=== PATIENT | male | born 1980 | race Caucasian/White ===

== ENCOUNTER 2019-11-06 07:57 | Emergency (ER) | payer OTHER ==
[2019-11-06] MEDS ORDERED: Ketorolac 15 MG/ML SDV IM ONE (08:18)
[2019-11-06] MEDS ORDERED: Cyclobenzaprine 10 MG Tab PO ONE (08:24)
[2019-11-06] MEDS ORDERED: Ibuprofen 600 MG Tab PO ONE (08:24)
--- NOTE | 2019-11-06 08:29 | EDM.PDOC ---
ED HPI GENERAL MEDICAL PROBLEM - General Chief Complaint: Back Pain or Injury Stated Complaint: CHEST DISCOMFORT, BACK INJURY? NUMBNESS Time Seen by Provider: 11/06/19 08:11 - History of Present Illness INITIAL COMMENTS - FREE TEXT/NARRATIVE: History of present illness: 39-year-old male presenting with upper back pain radiating around to the chest after lifting a heavy box. Had no symptoms prior to lifting the box. He reports the box was about chest tight and he pulled it out and felt suddenly pain between his shoulder blades that wrapped around to the chest. No difficulty breathing. No loss of bowel or bladder control. Has been able to ambulate since the pain started. Review of systems: As per history of present illness and below otherwise all systems reviewed and negative. Past medical history: As per history of present illness and as reviewed below otherwise noncontributory. Surgical history: As per history of present illness and as reviewed below otherwise noncontributory. Social history: No reported history of drug or alcohol abuse. Family history: As per history of present illness and as reviewed below otherwise noncontributory. Physical exam: GEN: no acute distress, well appearing HEENT: Atraumatic, normocephalic, mucous membranes moist, Neck: supple, nontender, trachea midline. Lungs: No respiratory distress. Heart: RRR no murmurs Abdomen: Soft, nondistended, nontender. Back: Tender to palpation between shoulder blades Extremities: Atraumatic. Neurovascularly intact. Neuro: Awake, alert, oriented. Neuro Exam nonfocal. No numbness or weakness on exam. Skin: warm, dry, no lesions Diagnostics: EKG performed today at 8:16 AM, shows sinus rhythm rate 62, no STEMI. Therapeutics: Initially Toradol IM was ordered, however the patient reported he did not like needles and declined the Toradol, and therefore ibuprofen and Flexeril ordered instead. MDM: Impression: [] Plan: [] Definitive disposition and diagnosis as appropriate pending reevaluation and review of above. Upper back Pain Score (Numeric/FACES): 3 - Related Data Allergies Allergy/AdvReac Type Severity Reaction Status Date / Time Penicillins Allergy Other Verified 11/06/19 08:09 Home Meds: Home Meds Cyclobenzaprine [Flexeril] 10 mg PO TID PRN #15 tab 11/06/19 [Rx] Lidocaine [Lidocaine Pain Relief] 1 each TP Q12HR #6 adh..patch 11/06/19 [Rx] Past Medical History HEENT History: Reports: None Cardiovascular History: Reports: None Respiratory History: Reports: None Gastrointestinal History: Reports: None Genitourinary History: Reports: None Musculoskeletal History: Reports: None Neurological History: Reports: None Psychiatric History: Reports: None Endocrine/Metabolic History: Reports: None Hematologic History: Reports: None Immunologic History: Reports: None Oncologic (Cancer) History: Reports: None Dermatologic History: Reports: None - Infectious Disease History Infectious Disease History: Reports: Chicken Pox - Past Surgical History Head Surgeries/Procedures: Reports: None HEENT Surgical History: Reports: None Cardiovascular Surgical History: Reports: None Respiratory Surgical History: Reports: None GI Surgical History: Reports: None Male Surgical History: Reports: None Endocrine Surgical History: Reports: None Neurological Surgical History: Reports: None Musculoskeletal Surgical History: Reports: None Oncologic Surgical History: Reports: None Dermatological Surgical History: Reports: None Social & Family History - Family History Family Medical History: Noncontributory - Tobacco Use Smoking Status *Q: Current Every Day Smoker Years of Tobacco use: 19 Packs/Tins Daily: 0.5 - Caffeine Use Caffeine Use: Reports: Soda - Alcohol Use Days Per Week of Alcohol Use: 7 Number of Drinks Per Day: 6 Total Drinks Per Week: 42 - Recreational Drug Use Recreational Drug Use: No ED ROS GENERAL - Review of Systems Review Of Systems: See Below (See dictation) ED EXAM, UPPER BACK/NECK PAIN - Physical Exam Exam: See Below (See dictation) Course - Vital Signs Last Recorded V/S: Last Vital Signs Temp 96.6 F L 11/06/19 08:06 Pulse 74 11/06/19 11:42 Resp 16 11/06/19 11:42 BP 133/70 11/06/19 11:42 Pulse Ox 97 11/06/19 11:42 - Orders/Labs/Meds Orders: Active Orders 24 hr Category Date Time Status EKG Documentation Completion [RC] STAT Care 11/06/19 08:18 Active Sodium Chloride 0.9% [Saline Flush] Med 11/06/19 09:41 Active 10 ml FLUSH ASDIRECTED PRN Sodium Chloride 0.9% [Saline Flush] Med 11/06/19 09:41 Active 2.5 ml FLUSH ASDIRECTED PRN Saline Lock Insert [OM.PC] Stat Oth 11/06/19 09:41 Ordered Medication Orders Sodium Chloride (Saline Flush) 10 ml FLUSH ASDIRECTED PRN PRN Reason: Keep Vein Open Last Admin: 11/06/19 11:40 Dose: 10 ml Sodium Chloride (Saline Flush) 2.5 ml FLUSH ASDIRECTED PRN PRN Reason: Keep Vein Open Last Admin: 11/06/19 11:40 Dose: 2.5 ml Labs: Laboratory Tests 11/06/19 11/06/19 Range/Units 09:50 09:50 WBC 9.74 (4.0-11.0) K/uL RBC 5.06 (4.50-5.90) M/uL Hgb 16.0 (13.0-17.0) g/dL Hct 48.9 (38.0-50.0) % MCV 96.6 (80.0-98.0) fL MCH 31.6 (27.0-32.0) pg MCHC 32.7 (31.0-37.0) g/dL RDW Std Deviation 48.7 (28.0-62.0) fl RDW Coeff of Tanner 14 (11.0-15.0) % Plt Count 260 (150-400) K/uL MPV 11.80 (7.40-12.00) fL Neut % (Auto) 68.5 (48.0-80.0) % Lymph % (Auto) 22.7 (16.0-40.0) % [place] % (Auto) 6.8 (0.0-15.0) % Eos % (Auto) 1.7 (0.0-7.0) % Baso % (Auto) 0.3 (0.0-1.5) % Neut # (Auto) 6.7 H (1.4-5.7) K/uL Lymph # (Auto) 2.2 (0.6-2.4) K/uL [place] # (Auto) 0.7 (0.0-0.8) K/uL Eos # (Auto) 0.2 (0.0-0.7) K/uL Baso # (Auto) 0.0 (0.0-0.1) K/uL Nucleated RBC % 0.0 /100WBC Nucleated RBCs # 0 K/uL Sodium 138 (136-148) mmol/L Potassium 4.3 (3.5-5.1) mmol/L Chloride 102 (98-107) mmol/L Carbon Dioxide 26.4 (21.0-32.0) mmol/L BUN 13 (7.0-18.0) mg/dL Creatinine 1.0 (0.8-1.3) mg/dL Est Cr Clr Drug Dosing 111.01 mL/min Estimated GFR (MDRD) > 60.0 ml/min Glucose 108 H (74-106) mg/dL Calcium 9.1 (8.5-10.1) mg/dL Total Bilirubin 0.2 (0.2-1.0) mg/dL AST 34 (15-37) IU/L ALT 89 H (14-63) IU/L Alkaline Phosphatase 114 (46-116) U/L Troponin I < 0.050 (0.000-0.056) ng/mL Total Protein 7.6 (6.4-8.2) g/dL Albumin 4.1 (3.4-5.0) g/dL Globulin 3.5 (2.6-4.0) g/dL Albumin/Globulin Ratio 1.2 (0.9-1.6) Meds: Medications Generic Name Dose Route Start Last Admin Trade Name Freq PRN Reason Stop Dose Admin Sodium Chloride 10 ml 11/06/19 09:41 11/06/19 11:40 Saline Flush FLUSH 10 ml ASDIRECTED PRN Administration Keep Vein Open Sodium Chloride 2.5 ml 11/06/19 09:41 11/06/19 11:40 Saline Flush FLUSH 2.5 ml ASDIRECTED PRN Administration Keep Vein Open Discontinued Medications Generic Name Dose Route Start Last Admin Trade Name Freq PRN Reason Stop Dose Admin Cyclobenzaprine HCl 10 mg 11/06/19 08:24 11/06/19 08:32 Flexeril PO 11/06/19 08:25 10 mg ONETIME ONE Administration Ibuprofen 600 mg 11/06/19 08:24 11/06/19 08:32 Motrin PO 11/06/19 08:25 600 mg ONETIME ONE Administration Ketorolac Tromethamine 30 mg 11/06/19 08:18 11/06/19 09:02 Toradol IM 11/06/19 08:19 Not Given ONETIME ONE - Re-Assessments/Exams Free Text/Narrative Re-Assessment/Exam: 11/06/19 09:40 The patient reports that he is feeling better, his pain is improved. However he now reports having some numbness in the anterior neck which he had not previously reported. He also has some numbness in the small and ring fingers of both hands. Due to these symptoms, will check labs and CT Angio of the chest. 11/06/19 10:40 Reevaluated the patient. I updated him on available results at this time. CT scan is still pending. The patient is still in pain. I offered additional medications including morphine and/or lidocaine patch, however the patient declined any medications at this time. 11/06/19 12:46 Patient is feeling better on reassessment. He was sleeping comfortably. When I woke him he did report that he still had some pain but it was at a tolerable level. I discussed all CT scan findings, including no signs of a dissection or aneurysm but fatty liver present. He does report that he drinks 3-5 beers per day. We discussed alcohol cessation/cutting back and need to follow-up with her primary care doctor for further ongoing evaluation. He does report that he does somewhat have some lower extremity swelling at the end of the day, worse on the left than the right and that he stands all day for work. We discussed plan for compression stockings. And primary care outpatient follow-up. Departure - Departure Time of Disposition: 12:47 Disposition: Home, Self-Care 01 Clinical Impression: Fatty liver Back pain Qualifiers: Back pain location: thoracic back pain Chronicity: acute Back pain laterality: midline Qualified Code(s): M54.6 - Pain in thoracic spine Thoracic myofascial strain Qualifiers: Encounter type: initial encounter Qualified Code(s): S29.019A - Strain of muscle and tendon of unspecified wall of thorax, initial encounter - Discharge Information Prescriptions: Lidocaine [Lidocaine Pain Relief] 1 each TP Q12HR #6 adh..patch Cyclobenzaprine [Flexeril] 10 mg PO TID PRN #15 tab PRN Reason: Muscle Spasm Instructions: How to Use Cold Therapy, [id number], Radicular Pain, Back Injury Prevention, [id number], Muscle Strain, [id number], Pain Medicine Instructions, [id number], Fatty Liver Disease Referrals: PCP,None [Primary Care Provider] - Forms: ED Department Discharge Additional Instructions: The following information is given to patients seen in the emergency department who are being discharged to home. This information is to outline your options for follow-up care. We provide all patients seen in our emergency department with a follow-up referral. The need for follow-up, as well as the timing and circumstances, are variable depending upon the specifics of your emergency department visit. If you don't have a primary care physician on staff, we will provide you with a referral. We always advise you to contact your personal physician following an emergency department visit to inform them of the circumstance of the visit and for follow-up with them and/or the need for any referrals to a consulting specialist. The emergency department will also refer you to a specialist when appropriate. This referral assures that you have the opportunity for follow-up care with a specialist. All of these measure are taken in an effort to provide you with optimal care, which includes your follow-up. Under all circumstances we always encourage you to contact your private physician who remains a resource for coordinating your care. When calling for follow-up care, please make the office aware that this follow-up is from your recent emergency room visit. If for any reason you are refused follow-up, please contact the [facility] Emergency Department at and asked to speak to the emergency department charge nurse. [facility] - Primary Care [address] [place] [address] [place] [address] Sepsis Event Note (ED) - Evaluation Sepsis Screening Result: No Definite Risk - Focused Exam Vital Signs: Vital Signs Temp Pulse Resp BP Pulse Ox 11/06/19 11:42 74 16 133/70 97 11/06/19 08:06 96.6 F L 70 18 137/75 97 - My Orders Last 24 Hours: My Active Orders 11/06/19 08:18 EKG Documentation Completion [RC] STAT 11/06/19 09:41 Sodium Chloride 0.9% [Saline Flush] 10 ml FLUSH ASDIRECTED PRN Sodium Chloride 0.9% [Saline Flush] 2.5 ml FLUSH ASDIRECTED PRN Saline Lock Insert [OM.PC] Stat - Assessment/Plan Last 24 Hours: My Active Orders 11/06/19 08:18 EKG Documentation Completion [RC] STAT 11/06/19 09:41 Sodium Chloride 0.9% [Saline Flush] 10 ml FLUSH ASDIRECTED PRN Sodium Chloride 0.9% [Saline Flush] 2.5 ml FLUSH ASDIRECTED PRN Saline Lock Insert [OM.PC] Stat
[2019-11-06] MEDS ORDERED: Sodium Chloride 0.9% 10 ML Syringe FLUSH PRN (09:41)
[2019-11-06] MEDS ORDERED: Sodium Chloride 0.9% 2.5 ML Syringe FLUSH PRN (09:41)
[2019-11-06 10:25] LABS: BLOOD UREA NITROGEN,BUN 13 mg/dL (7.0-18.0); CARBON DIOXIDE,CO2 26.4 mmol/L (21.0-32.0); CHLORIDE,CL 102 mmol/L (98-107); GLUCOSE RANDOM 108 mg/dL (74-106); POTASSIUM,K 4.3 mmol/L (3.5-5.1); SODIUM,NA 138 mmol/L (136-148)
--- NOTE | 2019-11-06 11:50 | CT ---
CT chest Technique: Multiple axial sections through the chest were obtained. Intravenous contrast was utilized. Study has been performed as a CT angiogram protocol. Comparison: No prior chest imaging is available. Findings: Thoracic aorta shows no aneurysm or dissection. Mediastinum and hilar regions show no adenopathy. No pericardial thickening is seen. Diffuse fatty infiltration is seen throughout the liver. Visualized upper abdominal aorta appears within normal limits. Lungs are clear with no acute parenchymal change. Slight scarring is noted within the superior segment of the right lower lung. Bone window settings were reviewed which shows no acute osseous finding. Impression: 1. No evidence of thoracic aortic aneurysm or dissection. 2. Severe fatty infiltration throughout the liver. 3. Nothing acute is seen on CT study of the chest. Diagnostic code #2 This report was dictated in MDT
[2019-11-06] MEDS ORDERED: Iopamidol 755 MG/ML 500 ML Multipack Bottle IVPUSH STA (17:15)
== END 2019-11-06 13:08 | disposition home or self-care (01) ==
LOC: MW.ED 07:57
DX: S29.012A Strain of muscle and tendon of back wall of thorax, initial encounter (principal); K76.0 Fatty (change of) liver, not elsewhere classified; F17.210 Nicotine dependence, cigarettes, uncomplicated; Z88.0 Allergy status to penicillin; X50.0XXA Overexertion from strenuous movement or load, initial encounter
CPT/HCPCS: 36415; 71275; 80053; 84484; 85025; 93005; 99284; A9270; Q9967